=== PATIENT | male | born 1950 | race Caucasian/White ===

== ENCOUNTER 2024-04-02 08:54 | Outpatient (RCR) | payer OTHER, SELFPAY ==
--- NOTE | 2024-04-02 10:00 | XR_ITS ---
Examination: PRIYANKA, hepatobiliary radioisotope scan Gallbladder ejection fraction study. Date and time of exam: April 02, 2024 0906 hours INDICATIONS: Abdominal pain and acid reflux heartburn beginning 3 months ago Technique: 6.0 mCi of 99M Hepatolite administered. Serial imaging then obtained from immediate through 60 minutes. 1.6 mcg selective catheter Kinevac administered for gallbladder ejection fraction study. Findings: Radioisotope activity within the liver is reasonably homogenous. Gallbladder, common bile duct small bowel activity noted Impression: Gallbladder activity Abnormal gallbladder ejection fraction, 60%, normal greater than 35%
== END 2024-04-07 23:59 | disposition home or self-care (01) ==
LOC: SNUC 08:54
PROVIDERS: PCP Specialist; Referring Provider Specialist; Visit Provider Specialist
DX: R93.89 Abnormal findings on diagnostic imaging of other specified body structures (principal)
CPT/HCPCS: 78227; A9537; J2805